=== PATIENT | female | born 1970 | race Caucasian/White ===

== ENCOUNTER 2017-01-17 23:18 | Emergency (ER) | payer MEDICAID ==
[~2017-01-17] VITALS: Ht 157.5 cm; Wt 68.0 kg
[2017-01-17 23:21] VITALS: BP 191/104; PULSE 74; RESP 16; TEMP 97.9; O2SAT 99
--- NOTE | 2017-01-17 23:39 | PD ---
HPI Chief Complaint: Injury Time Seen by Provider: 23:30 Travel History International Travel<30 days: No Contact w/Intl Traveler<30days: No Traveled to known affect area: No History of Present Illness HPI This is a 46-year-old female who presents for evaluation of right fourth toe pain. One hour prior to arrival patient was in the kitchen and checks only hit her right fourth toe against the corner of the cabinet. She now has general pain at the shaft of the right fourth toe, aching, constant, worse when walking. Denies any open wounds. Denies any other injuries and she has no other complaints at this time. 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, HEADACHES) Psychiatric: Yes (DEPRESSION) Reproductive: No Respiratory: No Thyroid Disease: No Past Surgical History AICD: No Joint Replacement: No Pacemaker: No Social History Alcohol Use: No Tobacco Use: No Substance Use: No Allergies-Medications (Allergen,Severity, Reaction): Coded Allergies: No Known Allergies (Unverified , 01/17/17) Reported Meds & Prescriptions Reported Meds & Active Scripts Active Ibuprofen 800 Mg Tab 800 Mg PO Q6HR PRN Review of Systems Musculoskeletal: Positive: Pain Skin: Positive Other (denies open wounds) Physical Exam Narrative GENERAL: Well-developed well-nourished female in no acute distress SKIN: Warm and dry. No open wounds, no bruising, no soft tissue swelling CARDIOVASCULAR: Regular rate and rhythm. No murmur appreciated. RESPIRATORY: No accessory muscle use. Clear to auscultation. Breath sounds equal bilaterally. Extremities: There is generalized tenderness to palpation the right fourth toe, pain with movement of the right fourth toe. There is no tenderness to palpation of the other toes of the right foot. There is no tenderness to palpation of the metatarsals. Distal sensation is preserved. No obvious deformity. Data Data Last Documented VS Vital Signs Date Time Temp Pulse Resp B/P (MAP) Pulse Ox O2 Delivery O2 Flow Rate FiO2 01/17/17 23:21 97.9 74 16 191/104 (133) 99 Orders Orders Toe (Min 2vws) (01/17/17 ) Splint Or Brace Apply/Monitor (01/18/17 00:01) Ibuprofen (Motrin) (01/18/17 00:15) MDM Medical Decision Making Medical Screen Exam Complete: Yes Emergency Medical Condition: Yes Medical Record Reviewed: Yes Differential Diagnosis Toe fracture versus sprain versus strain versus contusion Narrative Course X-ray imaging will be obtained. X-ray imaging confirms a minimally displaced fracture the proximal phalanx of the right fourth toe. Therefore a nery tape splint and postop shoe were applied. She stable for discharge with a prescription for ibuprofen, outpatient follow-up with primary care physician. Diagnosis Primary Impression: Toe fracture, right Qualified Codes: S92.514A - Nondisplaced fracture of proximal phalanx of right lesser toe(s), initial encounter for closed fracture Additional Instructions: Nery tape splint and postop shoe as needed. Ice pack several times a day 10- 15 minutes at a time over the next few days. Ibuprofen for pain. Follow-up with primary care physician in 2 weeks. Return for any emergent medical conditions. Med/Other Pt SpecificInfo: Prescription(s) given Scripts Ibuprofen (Ibuprofen) 800 Mg Tab 800 MG PO Q6HR Y for PAIN, #40 TAB 0 Refills Prov: Kurtis Mcneill MD 01/18/17 Disposition: 01 DISCHARGE HOME Condition: Stable Neeraj Cummins Jan 17, 2017 23:39
--- NOTE | 2017-01-18 00:02 | RADRPT ---
EXAM DATE/TIME: 01/17/2017 23:47 [facility] COMPARISON: No previous studies available for comparison. INDICATIONS : Right 4th toe. MEDICAL HISTORY : None. SURGICAL HISTORY : None. ENCOUNTER: Initial ACUITY: 1 day PAIN SCORE: 0/10 LOCATION: Right 4th FINDINGS: Examination of the fourth digit of the right foot demonstrates a mildly displaced fracture of the pro ximal phalanx of the fourth toe. No dislocation. CONCLUSION: 1. Minimally displaced fracture proximal phalanx right fourth toe. Hilton Mckeon MD on January 17, 2017 at 23:59 Board Certified Radiologist. This report was verified electronically.
[2017-01-18] MEDS ORDERED: IBUP800T23 PO (00:05)
[2017-01-18] MEDS ORDERED: IBUPROFEN 800 MG TAB PO ONE (00:15)
== END 2017-01-18 00:35 | disposition home or self-care (01) ==
LOC: NEPK 23:18
DX: S92.514A Nondisplaced fracture of proximal phalanx of right lesser toe(s), initial encounter for closed fracture (principal); W22.09XA Striking against other stationary object, initial encounter; Y92.000 Kitchen of unspecified non-institutional (private) residence as the place of occurrence of the external cause
CPT/HCPCS: 29550; 73660; 99283; L3260

== ENCOUNTER 2017-07-22 09:43 | Emergency (ER) | payer MEDICAID ==
[~2017-07-22] VITALS: Ht 157.5 cm; Wt 66.0 kg
[~2017-07-22 09:43] MED LIST: IBUP1TAB7 PO
[2017-07-22 09:44] VITALS: BP 194/94; PULSE 84; RESP 16; TEMP 98.8; O2SAT 99
[2017-07-22] MEDS ORDERED: LISI-519 PO (10:12)
--- NOTE | 2017-07-22 10:16 | PD ---
HPI Chief Complaint: Pain: Acute or Chronic Time Seen by Provider: 09:58 Travel History International Travel<30 days: No Contact w/Intl Traveler<30days: No Traveled to known affect area: No History of Present Illness HPI c/o onset of "rectal pain" since last night, feels like she needs to have a bm, but none occurs. patient denies h/o hemorrhoids and no vag or rectal bleeding. patient rates it a 4/10. 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, HEADACHES) Psychiatric: Yes (DEPRESSION) Reproductive: No Respiratory: No Immunizations Current: Yes Thyroid Disease: No ?: Not Past Surgical History Surgical History: No Previous Surgery AICD: No Joint Replacement: No Pacemaker: No Other Surgery: No (COLONOSCOPY) Social History Alcohol Use: No Tobacco Use: No Substance Use: No Allergies-Medications (Allergen,Severity, Reaction): Coded Allergies: No Known Allergies (Verified Adverse Reaction, Unknown, 07/22/17) Reported Meds & Prescriptions Reported Meds & Active Scripts Active Reported Lisinopril 5 Mg Tab 5 Mg PO DAILY Review of Systems Except as stated in HPI: all other systems reviewed are Neg General / Constitutional: No: Fever Eyes: No: Visual changes HENT: No: Headaches Cardiovascular: No: Chest Pain or Discomfort Respiratory: No: Shortness of Breath Gastrointestinal: Positive: Other ("deep" rectal pain) Genitourinary: No: Dysuria Musculoskeletal: No: Pain Skin: No Rash Neurologic: No: Weakness Psychiatric: No: Depression Endocrine: No: Polydipsia Hematologic/Lymphatic: No: Easy Bruising Physical Exam Narrative GENERAL: SKIN: Warm and dry. HEAD: Atraumatic. Normocephalic. EYES: Pupils equal and round. No scleral icterus. No injection or drainage. ENT: No nasal bleeding or discharge. Mucous membranes pink and moist. NECK: Trachea midline. No JVD. CARDIOVASCULAR: Regular rate and rhythm. RESPIRATORY: No accessory muscle use. Clear to auscultation. Breath sounds equal bilaterally. GASTROINTESTINAL: Abdomen soft, non-tender, nondistended. rn uvaldo at bedside during rectal : no hemorrhoids, guaiac neg, however ttp over 2 o'clock position. MUSCULOSKELETAL: Extremities without clubbing, cyanosis, or edema. No obvious deformities. NEUROLOGICAL: Awake and alert. No obvious cranial nerve deficits. Motor grossly within normal limits. Five out of 5 muscle strength in the arms and legs. Normal speech. PSYCHIATRIC: Appropriate mood and affect; insight and judgment normal. Data Data Last Documented VS Vital Signs Date Time Temp Pulse Resp B/P (MAP) Pulse Ox O2 Delivery O2 Flow Rate FiO2 07/22/17 10:31 99 Room Air 07/22/17 09:44 98.8 84 16 Orders Orders Complete Blood Count With Diff (07/22/17 10:16) Comprehensive Metabolic Panel (07/22/17 10:16) Lipase (07/22/17 10:16) Ct Abd/Pel W Iv Contrast(Rout) (07/22/17 10:16) Iv Access Insert/Monitor (07/22/17 10:16) Ecg Monitoring (07/22/17 10:16) Oximetry (07/22/17 10:16) NPO (07/22/17 10:16) Sodium Chloride 0.9% Flush (Ns Flush) (07/22/17 10:30) Oral Contrast - Adult (07/22/17 10:23) Diatrizoate Liq ( Gastrojensen Liq) (07/22/17 10:28) Iohexol 350 Inj (Omnipaque 350 Inj) (07/22/17 12:06) Labs Laboratory Tests Test 07/22/17 10:20 White Blood Count 9.6 TH/MM3 Red Blood Count 4.32 MIL/MM3 Hemoglobin 13.1 GM/DL Hematocrit 37.9 % Mean Corpuscular Volume 87.8 FL Mean Corpuscular Hemoglobin 30.4 PG Mean Corpuscular Hemoglobin Concent 34.6 % Red Cell Distribution Width 14.2 % Platelet Count 295 TH/MM3 Mean Platelet Volume 8.6 FL Neutrophils (%) (Auto) 62.4 % Lymphocytes (%) (Auto) 31.2 % Monocytes (%) (Auto) 5.5 % Eosinophils (%) (Auto) 0.6 % Basophils (%) (Auto) 0.3 % Neutrophils # (Auto) 6.0 TH/MM3 Lymphocytes # (Auto) 3.0 TH/MM3 Monocytes # (Auto) 0.5 TH/MM3 Eosinophils # (Auto) 0.1 TH/MM3 Basophils # (Auto) 0.0 TH/MM3 CBC Comment DIFF FINAL Differential Comment Blood Urea Nitrogen 7 MG/DL Creatinine 0.79 MG/DL Random Glucose 74 MG/DL Total Protein 8.5 GM/DL Albumin 3.9 GM/DL Calcium Level 8.9 MG/DL Alkaline Phosphatase 74 U/L Aspartate Amino Transf (AST/SGOT) 13 U/L Alanine Aminotransferase (ALT/SGPT) 18 U/L Total Bilirubin 0.3 MG/DL Sodium Level 140 MEQ/L Potassium Level 3.4 MEQ/L Chloride Level 107 MEQ/L Carbon Dioxide Level 26.0 MEQ/L Anion Gap 7 MEQ/L Estimat Glomerular Filtration Rate 78 ML/MIN Lipase 129 U/L [facility] Medical Decision Making Medical Screen Exam Complete: Yes Emergency Medical Condition: Yes Medical Record Reviewed: Yes Differential Diagnosis perirectal abscess v mass v proctitis Narrative Course CBC SHOWS NO LEUKOCYTOSIS, NO ANEMIA ELECTROLYTES ARE NORMAL, NORMAL LFT'S AND NORMAL LIPASE CT WITH CONTRAST: READ NO ACUTE FINDINGS WITHIN THE ABDOMEN Diagnosis Primary Impression: RECTAL PAIN NOS Referrals: Shala Juarez MD Patient Instructions: General Instructions Scripts Tramadol (Ultram) 50 Mg Tab 50 MG PO Q6H Y for PAIN, #15 TAB 0 Refills Prov: Art Velazquez MD 07/22/17 Disposition: 01 DISCHARGE HOME Condition: Stable Art Velazquez MD Jul 22, 2017 10:16
[2017-07-22] MEDS ORDERED: DIATRIZOATE MEGLUM/DIATRIZOATE SOD 9 ML CUP ONE (10:28)
[2017-07-22] MEDS ORDERED: SODIUM CHLORIDE 0.9% FLUSH 10 ML FLUSH IV FLUSH PRN (10:30)
[2017-07-22 10:31] VITALS: O2SAT 99
[2017-07-22 10:44] LABS: BASOPHIL % 0.3 % (0.0-2.0); EOSINOPHIL # 0.1 TH/MM3 (0-0.4); EOSINOPHIL % 0.6 % (0.0-4.0); HEMATOCRIT 37.9 % (35.0-46.0); HEMOGLOBIN 13.1 GM/DL (11.6-15.3); LYMPH % 31.2 % (9.0-44.0); MEAN CELL VOLUME 87.8 FL (80.0-100.0); MEAN CORPUSCULAR HEMOGLOBIN 30.4 PG (27.0-34.0); MEAN CORPUSCULAR HGB CONC 34.6 % (32.0-36.0); MEAN PLATELET VOLUME 8.6 FL (7.0-11.0); MONO % 5.5 % (0.0-8.0); MONOCYTE # 0.5 TH/MM3 (0-0.9); NEUT % 62.4 % (16.0-70.0); PLATELET COUNT 295 TH/MM3 (150-450); RED BLOOD COUNT 4.32 MIL/MM3 (4.00-5.30); RED CELL DISTRIBUTION WIDTH 14.2 % (11.6-17.2); WHITE BLOOD COUNT 9.6 TH/MM3 (4.0-11.0)
[2017-07-22 11:02] LABS: ALBUMIN 3.9 GM/DL (3.4-5.0); ALT (GPT) 18 U/L (10-53); AST (GOT) 13 U/L (15-37); BLOOD UREA NITROGEN 7 MG/DL (7-18); CALCIUM 8.9 MG/DL (8.5-10.1); CHLORIDE 107 MEQ/L (98-107); CREATININE 0.79 MG/DL (0.50-1.00); GLOMERULAR FILTRATION RATE 78 ML/MIN (>89); GLUCOSE,RANDOM 74 MG/DL (74-106); SODIUM (NA) 140 MEQ/L (136-145)
[2017-07-22 11:04] LABS: ALKALINE PHOSPHATASE 74 U/L (45-117); TOTAL BILIRUBIN ADULT 0.3 MG/DL (0.2-1.0); TOTAL PROTEIN 8.5 GM/DL (6.4-8.2)
[2017-07-22] MEDS ORDERED: IOHEXOL 350 MG/ML 10 ML VIAL (for RAD DIAG) IVCONTRAST ONE (12:06)
--- NOTE | 2017-07-22 12:26 | RADRPT ---
EXAM DATE/TIME: 07/22/2017 11:52 [facility] COMPARISON: No previous studies available for comparison. INDICATIONS : Abdominal pain IV CONTRAST: 95 cc Omnipaque 350 (iohexol) IV ORAL CONTRAST: Prescribed oral contrast ingested. RADIATION DOSE: 6.97 CTDIvol (mGy) MEDICAL HISTORY : None SURGICAL HISTORY : Colonoscopy ENCOUNTER: Initial ACUITY: 3 days PAIN SCALE: 7/10 LOCATION: Left lower quadrant TECHNIQUE: Volumetric scanning of the abdomen and pelvis was performed. Using automated exposure control and ad justment of the mA and/or kV according to patient size, radiation dose was kept as low as reasonably achievable to obtain optimal diagnostic quality images. DICOM format image data is available electro nically for review and comparison. FINDINGS: Lung bases are clear. No acute findings in the liver, spleen, adrenals, kidneys or pancreas. No calcified gallstones. No free fluid. No bowel obstruction. No adenopathy. Trace free fluid in the pelvis. CONCLUSION: 1. No acute findings within the abdomen. Trace free fluid in the pelvis which may be physiologic. No obstruction or free air. Hilton Mckeon MD on July 22, 2017 at 12:14 Board Certified Radiologist. This report was verified electronically.
[2017-07-22] MEDS ORDERED: TRAM50 PO (12:49)
[2017-07-22 12:55] VITALS: BP 138/81; TEMP 97.8
== END 2017-07-22 12:55 | disposition home or self-care (01) ==
LOC: NEPD 09:43
DX: K62.89 Other specified diseases of anus and rectum (principal); I10 Essential (primary) hypertension; F32.9 Major depressive disorder, single episode, unspecified; M19.90 Unspecified osteoarthritis, unspecified site; Z79.899 Other long term (current) drug therapy
CPT/HCPCS: 74177; 80053; 83690; 85025; 99284; Q9963; Q9967